=== PATIENT | female | born 1955 | race Caucasian/White ===

== ENCOUNTER 2019-05-13 15:49 | Emergency (ER) | payer OTHER ==
[~2019-05-13] VITALS: Ht 152.4 cm; Wt 90.7 kg
[2019-05-13 16:13] VITALS: BP 156/93
--- NOTE | 2019-05-13 16:26 | NUR ---
BIB SELF C/O VAGINAL BURNING, [place] WITH URINATION, FREQUENCY/URGENCY X2 DAY. RATES BURNING PAIN 10/. COLD SYMPTOMS, CHEST CONGESTION WITH PRODUCTIVE COUGH, YELLOW SPUTUM. HEADACHE PAIN 10/. PMH: ARTHRITIS, HTN, ANGINA RX: LISINOPRIL, NTG, FUROSEMIDE
--- NOTE | 2019-05-13 16:52 | NUR ---
Dr. Blas is evaluating the patient at bedside.
[2019-05-13 17:02] LABS: APPEARANCE,URINE HAZY (CLEAR); BILIRUBIN,URINE NEGATIVE (NEGATIVE); BLOOD, URINE 3+ (NEGATIVE); COLOR,URINE YELLOW (YELLOW); LEUKOCYTE ESTERASE ,URINE 2+ (NEGATIVE); NITRITE, URINE NEGATIVE (NEGATIVE); UGLUCOSE NEGATIVE (NEGATIVE)
[2019-05-13 17:18] LABS: RBC,URINE TOO NUMEROUS TO COUN /HPF (0-5)
[2019-05-13 17:46] VITALS: BP 149/78
--- NOTE | 2019-05-13 17:47 | NUR ---
Patient discharged with v/s stable. Written and verbal after care instructions given and explained. Patient alert, oriented and verbalized understanding of instructions. Ambulatory with steady gait. All questions addressed prior to discharge. ID band removed. Patient advised to follow up with PMD. Rx of PHENAZOPYRDINE HYDROCHLORIDE, BACTRIM given. Patient educated on indication of medication including possible reaction and side effects. Opportunity to ask questions provided and answered.
== END 2019-05-13 17:47 | disposition home or self-care (01) ==
LOC: MED 15:49
DX: N39.0 Urinary tract infection, site not specified (principal); I10 Essential (primary) hypertension; Z98.890 Other specified postprocedural states
CPT/HCPCS: 81001; 87086; 87186; 99283